=== PATIENT | male | born 1995 | race African-American/Black ===

== ENCOUNTER 2018-10-29 18:53 | Emergency (ER) | payer OTHER ==
[~2018-10-29] VITALS: Ht 180.3 cm; Wt 112.3 kg
[2018-10-29] MEDS ORDERED: PROAAER10 (19:04)
--- NOTE | 2018-10-29 20:05 | REP ---
Left wrist four views History: Injury There is no acute fracture or dislocation. The joint spaces are normal in appearance. Impression: There is no acute fracture or dislocation. Electronically Signed by William Finley MD 10/29/2018 07:57 P
--- NOTE | 2018-10-29 20:07 | REP ---
Left hand four views History: Injury There is no acute fracture or dislocation. The joint spaces are normal in appearance. Impression: There is no acute fracture or dislocation. Electronically Signed by William Finley MD 10/29/2018 07:59 P
[2018-10-29 21:55] VITALS: BP 137/91
== END 2018-10-29 22:00 | disposition home or self-care (01) ==
LOC: M ED 18:53
DX: M79.602 Pain in left arm (principal); J45.909 Unspecified asthma, uncomplicated